=== PATIENT | female | born 1995 | race Caucasian/White ===

== ENCOUNTER 2017-06-12 23:46 | Observation (INO) ==
--- NOTE | 2017-06-13 08:44 | OB/GYN Progress Note ---
Date of Encounter: 06/13/17 Time of Encounter: 01:30 - Assessment and Plan (1) 24 weeks gestation of Status: Acute (2) Decreased movement affecting management of mother, antepartum Status: Acute FHT reassuring. Discharge home with precautions. Qualifiers: Fetus number: single or unspecified fetus Qualified Code(s): O36.8190 - Decreased movements, unspecified trimester, not applicable or unspecified Subjective - Subjective Interval history: 21 year-old presenting at 24w4d with c/o decreased movement. No other complaints. Antepartum ROS: no loss of fluid, no vaginal bleeding, no movement normal , no contractions Objective - Vital Signs Vital Signs: Intake and Output 06/12/17 06/13/17 06/13/17 23:59 07:59 15:59 Other: Weight 128.6 kg - Exam FHR: category 1 FHR comments: FHT reassuring for GA Abdomen: Present: soft, gravid Uterus: Present: normal
== END 2017-06-13 01:37 | disposition home or self-care (01) ==
LOC: 1NENULAB
PROVIDERS: ADMIT Registered Nurse; ATTEND Registered Nurse

== ENCOUNTER 2017-07-09 21:33 | Observation (INO) ==
[2017-07-09 22:13] LABS: Bilirubin,Urine Negative (Negative); Blood,Urine Negative (Negative); Clarity,Urine Cloudy (Clear); Color,Urine Yellow (Yellow); Glucose,Urine (UA) Normal (Normal); Ketones,Urine 80 mg/dL (Negative); Leukocyte Esterase,Urine Moderate (Negative); Nitrite,Urine Negative (Negative); PH,Urine 6.5 pH Units (5.0-8.0); Protein,Urine Trace mg/dL (Neg-Trace); Specific Gravity,Urine 1.026 (1.010-1.025); Urobilinogen,Urine Normal (Normal)
[2017-07-09 22:14] LABS: Bacteria,Urine Moderate per hpf (None-Few); Hyaline Casts,Urine None Seen per lpf (None-Few); Squamous Epithelial Cell,Urine Many per lpf (None-Few); WBC,Urine 15-30 per hpf (0-3)
[2017-07-09 22:21] LABS: Amphetamine Screen,Urine Negative ng/mL (Cutoff=1000); Barbiturate Screen,Urine Negative ng/mL (Cutoff=200); Benzodiazepines Screen,Urine Negative ng/mL (Cutoff=200); Cannabinoid Screen,Urine Negative ng/mL (Cutoff = 50); Cocaine Screen,Urine Negative ng/mL (Cutoff= 300); Opiate Screen,Urine Negative ng/mL (Cutoff=300); Phencyclidine Screen,Urine Negative ng/mL (Cutoff=25)
--- NOTE | 2017-07-09 22:21 | OB/GYN Progress Note ---
Date of Encounter: 07/09/17 Time of Encounter: 19:30 - Assessment and Plan (1) 28 weeks gestation of Current Visit: Yes Status: Acute (2) Pain of round ligament affecting , antepartum Current Visit: Yes Status: Acute FHT reassuring UA negative for UTI LLQ pain likely from round ligament pain Patient is advised to limit sudden movements that are precipitating her pain Plan to discharge patient with antepartum precautions and follow-up outpatient (3) Nausea Current Visit: Yes Status: Acute discharge home with zofran for nausea (4) Tobacco use during in third trimester Current Visit: Yes Status: Acute Subjective - Subjective Principal diagnosis: Left lower quadrant pain Interval history: 21F at 28 weeks and 2 days presents to labor and delivery for persistent left lower quadrant pain starting at 0230 this morning. Patient receives care from midwives. The abdominal pain does not radiate. Pain level ranges from 2-10/10. Worse with sudden movements, better with walking. Patient has been voiding without difficulty. Admits to normal bowel movement in the morning without relief of pain. Denied any fever, chills, vomiting, but does admit to nausea. She is able to tolerate PO intake. Has not taken any medications for the pain. She reports good movements, denies contractions, vaginal bleeding, fluid leakage. complicated by obesity, active chronic smoker, A negative blood type. Blood type: A negative, negative antibody Varicella IgG: positive Rubella IgG: positive T. Pallidum: negative Hep B: NR HIV: NR Antepartum ROS: movement normal, no loss of fluid, no vaginal bleeding, no contractions Objective - Vital Signs Vital Signs: Intake and Output 07/09/17 07/09/17 07/09/17 07:59 15:59 23:59 Other: Weight 127.1 kg Patient Weight 07/09/17 23:59 Weight 127.1 kg - Exam FHR: auscultation normal, category 1 Auscultation: bilateral: normal Abdomen: Present: normal appearance, soft, gravid Uterus: Present: normal, firm
== END 2017-07-09 22:40 | disposition home or self-care (01) ==
LOC: 1NENULAB
PROVIDERS: ADMIT Registered Nurse; ATTEND Registered Nurse

== ENCOUNTER → 2017-09-21 23:51 | Observation (INO) ==
[2017-09-21 23:16] LABS: Bilirubin,Urine Negative (Negative); Blood,Urine Negative (Negative); Clarity,Urine Slightly Cloudy (Clear); Color,Urine Yellow (Yellow); Glucose,Urine (UA) Normal (Normal); Ketones,Urine Negative (Negative); Leukocyte Esterase,Urine Negative (Negative); Nitrite,Urine Negative (Negative); PH,Urine 5.5 pH Units (5.0-8.0); Protein,Urine 30 mg/dL (Neg-Trace); Specific Gravity,Urine >= 1.030 (1.010-1.025); Urobilinogen,Urine Normal (Normal)
[2017-09-21 23:29] LABS: Amphetamine Screen,Urine Negative ng/mL (Cutoff=1000); Barbiturate Screen,Urine Negative ng/mL (Cutoff=200); Benzodiazepines Screen,Urine Negative ng/mL (Cutoff=200); Cannabinoid Screen,Urine Negative ng/mL (Cutoff = 50); Cocaine Screen,Urine Negative ng/mL (Cutoff= 300); Opiate Screen,Urine Negative ng/mL (Cutoff=300); Phencyclidine Screen,Urine Negative ng/mL (Cutoff=25)
[2017-09-21 23:35] LABS: Bacteria,Urine Many per hpf (None-Few); Hyaline Casts,Urine None Seen per lpf (None-Few); RBC,Urine 0-3 per hpf (0-3); Squamous Epithelial Cell,Urine Many per lpf (None-Few); WBC,Urine 0-3 per hpf (0-3)
--- NOTE | 2017-09-22 05:15 | OB/GYN Progress Note ---
Date of Encounter: 09/22/17 Time of Encounter: 23:40 - Assessment and Plan (1) 39 weeks gestation of Status: Acute (2) LGA (large for gestational age) fetus Status: Acute Pt scheduled for delivery (3) Cramping affecting , antepartum Status: Acute SVE unchanged per RN. Discharge home with precautions. Subjective - Subjective Interval history: Pt presenting for labor evaluation. She was seen and evaluated by medical staff specialist. Antepartum ROS: contractions Objective - Vital Signs Vital Signs: Intake and Output 09/21/17 09/21/17 09/22/17 15:59 23:59 07:59 Other: Weight 157.5 kg - Exam FHR: category 1 FHR comments: NST reactive Cervical dilation: 1-2/70/-2 per RN - Labs Labs: Abnormal lab results Urine Clarity Slightly Cloudy (Clear) A 09/21/17 23:05 Ur Specific [place] >= 1.030 (1.010-1.025) H 09/21/17 23:05 Urine Protein 30 mg/dL (Neg-Trace) H 09/21/17 23:05 Ur Squamous Epith Cells Many per lpf (None-Few) H 09/21/17 23:05 Urine Bacteria Many per hpf (None-Few) H 09/21/17 23:05
== END | disposition home or self-care (01) ==
LOC: 1NENULAB
PROVIDERS: ADMIT Registered Nurse; ATTEND Registered Nurse

== ENCOUNTER 2017-09-24 13:14 | Inpatient (IN) ==
[2017-09-24] MEDS ORDERED: Oxytocin 20 units/ LR 1000 mL 20 UNIT/1,000 ML BAG IVC ONE (13:30)
[2017-09-24] MEDS ORDERED: CeFAZolin Syr 3,000MG/30 ML 3,000 MG/30 ML SYRINGE IVPB ONE (13:30)
[2017-09-24] MEDS ORDERED: Ringers Solution, Lactated 1,000 ML IVC SCH ×2 (13:30→18:15)
[2017-09-24] MEDS ORDERED: Metoclopramide 10 MG/2 ML VIAL IVP ONE (13:30)
[2017-09-24] MEDS ORDERED: Ringers Solution, Lactated 1,000 ML IVC ONE (13:30)
[2017-09-24] MEDS ORDERED: Famotidine 20 MG/2 ML VIAL IVP ONE (13:30)
--- NOTE | 2017-09-24 14:10 | Anesthesia Evaluation PreOp ---
Date of Encounter: 09/24/17 Time of Encounter: 14:08 - Past History Planned Operation: csection with spinal Cardiac History: Denies any Significant Hx Pulmonary History: Smoker, Pack/yr (1-2pk/yr) PROVIDER RELATIONS CONSULTANT History: Other (migraines, numb area left thigh since age 13) Other Medical History: Denies Any Significant HX, Other (morbid obesity BMI 57.2 , anxiety, depression, hx of suicidal ideation, bipolar disorder) Anesthesia History: No Prior Anesthetic Complications, Past Anesthesia (wisdom teeth extraction) : Yes Alcohol Use: none Drug use: none Medications and Allergies Formula Tablet 1 tab PO DAILY 01/17/17 [History] Ferrous Sulfate 325 mg PO DAILY 07/09/17 [History] Clindamycin HCl 300 mg PO QID #28 capsule 09/11/17 [Rx] 3 Allergy/AdvReac Type Severity Reaction Status Date / Time [place] AdvReac Nausea Verified 09/11/17 01:58 chili powder Allergy unsure was Uncoded 06/11/17 18:00 as and hospitalized - Meds/Allergy Pre-op Review Medications Reviewed: Yes Allergies Reviewed: Yes Beta Blockers on Current Med List: No Anesthesia Exam BP 128/76 T 98.7 P 57 Height: 5'1" Weight: 137.2kg NPO (# of Hours): 14 Pain Scale: 0 Pain Scale Used: Numeric (1 - 10) - HEENT Pupil (Motor): Pupils equal Mallampati: II Teeth: Normal Oral Opening: Greater than 3 - PROVIDER RELATIONS CONSULTANT LOC: Oriented PROVIDER RELATIONS CONSULTANT Motor: Normal RUE, Normal LUE, Normal RLE, Normal LLE, Normal Face PROVIDER RELATIONS CONSULTANT Sensory: Normal: RUE, LUE, RLE, LLE, Face - Cardiac Rhythm: Regular Murmur: None JVD: No Carotid Bruit: No - Pulmonary Breath Sounds: bilateral Clear Respiratory Effort: Symmetrical Anesthesia Assess/Plan ASA Score: 3 Modified [place] Scale for Level of Consciousness: Cooperative, oriented, and tranquil Anesthetic Plan: Regional Autologous Blood: No Monitoring Plan: Standard Monitors Recovery Plan: PACU
--- NOTE | 2017-09-24 14:10 | OB/GYN History & Physical ---
Date of Encounter: 09/24/17 Time of Encounter: 14:08 Assessment and Plan (1) Macrosomia Current visit: Yes Status: Acute (2) 39 weeks gestation of Current visit: No Status: Acute Pt presents for primary b/c u/s shows very large . She is worried about increased risk of dystocia, she is aware of surgical risks and desires to proceed with primary .. History of Present Illness Chief complaint: Here for primary for macrosomia HPI: Ms. Clifford is a 22 year old female female at 39 weeks gestation presents for primary for suspected macrosomia by recent u/s showing EFWT > 95%. has been otherwise uncomplicated. On arrival she reports + GFM, no vb or lof. Past Med Surg Social Fam HX - Past Medical History Source: patient, old records reviewed Medical history: no medical history Psychiatric history: bipolar, depression, PTSD, prior suicide attempt, previous psychiatric hospitalization - Past Surgical History Surgical History: other Additional surgical history: wisdom teeth - Social History Smoking Status: Current every day smoker Smokeless Tobacco Status: No Alcohol use: none Drug use: none - Family History Father Adopted: No Family Member Ethnicity: Non- Living Status: Still Living Hx Family Cardiac Disorders: No Hx Family Respiratory Disorders: No Hx Family Cancer: No Hx Family GI Disorders: No Hx Family Endocrine Disorder: Yes (type 2 diabetes) Hx Family Neuromuscular Disorders: No Hx Family Neurologic Disorders: No Hx Family HEENT Disorders: No Hx Family Autoimmune Disorders: No Obstetrical History - Pregnancies : 1 Medications and Allergies Formula Tablet 1 tab PO DAILY 01/17/17 [History] Ferrous Sulfate 325 mg PO DAILY 07/09/17 [History] Clindamycin HCl 300 mg PO QID #28 capsule 09/11/17 [Rx] 3 Allergy/AdvReac Type Severity Reaction Status Date / Time [place] AdvReac Nausea Verified 09/11/17 01:58 chili powder Allergy unsure was Uncoded 06/11/17 18:00 as infant and hospitalized Exam - Constitutional Constitutional: well developed, well nourished, no acute distress - HEENT HEENT: EOMI, PERRL - Neck Neck exam: full ROM - Lungs Respiratory exam: CTAB - Cardiovascular Cardiovascular exam: RRR - Abdomen Abdomen: Present: bowel sounds normal, gravid, non tender - Extremities Extremities exam: full ROM Deep Tendon Reflex Grade: 2+ Normal Results All other labs normal. - VTE Reasons for not Prescribing Prophylaxis: Treatment not Indicated - Low risk for VTE
[2017-09-24 14:27] LABS: Basophils % 0.3 %; Eosinophils # 0.4 K/mcL (0.0-0.6); Eosinophils % 2.8 %; Hematocrit 33.2 % (35.3-44.9); Hemoglobin 10.2 g/dL (11.5-15.4); Immature Granulocytes % 0.8 % (0-4); Mean Corpuscular HGB Conc 30.7 g/dL (31.6-35.5); Mean Corpuscular Hemoglobin 22.5 pg (28.0-33.3); Mean Corpuscular Volume 73.3 fL (83.0-100.0); Mean Platelet Volume 11.7 fL (9.4-12.4); Monocytes # 0.6 K/mcL (0.0-1.3); Monocytes % 4.8 %; Platelet Count 207 K/mcL (140-400); Red Blood Count 4.53 M/mcL (3.82-4.97); Red Cell Distribution Width 16.4 % (11.5-14.5); Segmented Neutrophils % 76.3 %
[2017-09-24 14:33] LABS: Amphetamine Screen,Urine Negative ng/mL (Cutoff=1000); Barbiturate Screen,Urine Negative ng/mL (Cutoff=200); Benzodiazepines Screen,Urine Negative ng/mL (Cutoff=200); Cannabinoid Screen,Urine Negative ng/mL (Cutoff = 50); Cocaine Screen,Urine Negative ng/mL (Cutoff= 300); Opiate Screen,Urine Negative ng/mL (Cutoff=300); Phencyclidine Screen,Urine Negative ng/mL (Cutoff=25)
[2017-09-24] MEDS ORDERED: Bupivacaine/PF 0.75% in Dex 2 ML AMPUL INFILT ONE (16:48)
[2017-09-24] MEDS ORDERED: Lidocaine -MPF 1% 5 ML AMPUL ONE (16:58)
[2017-09-24] MEDS ORDERED: Morphine Sulfate/PF 5mg/10mL Vial ONE (17:03)
[2017-09-24] MEDS ORDERED: *HR* Phenylephrine 10 MG/ML VIAL ONE (17:19)
[2017-09-24] MEDS ORDERED: Ringers Solution, Lactated 1,000 ML ONE (17:22)
[2017-09-24] MEDS ORDERED: Ondansetron 4 MG/2 ML VIAL ONE (17:23)
[2017-09-24] MEDS ORDERED: *HR* Oxytocin 10 UNIT/ML VIAL IM ONE (17:23)
[2017-09-24] MEDS ORDERED: Dexamethasone 4 MG/ML VIAL ONE (17:23)
--- NOTE | 2017-09-24 17:58 | Anesthesia Procedures ---
Date of Encounter: 09/24/17 Time of Encounter: 17:10 Procedures: Anesthesia - Epidural/Spinal Patient ID/Chart reviewed: Yes Patient examined: Yes OB Eval: : 1 OB Eval: Hx Para: 0 Site Prep: Aseptic Technique, Sterile prep and drape, Povidone-Iodine 1% Patient position: upright Local Anesthetic: Lidocaine 1% Amount of Local Anesthetic used: 3 Interspace Used: L3-L4 Loss of Resistance (OSCAR): No Blood: No CSF: Yes Paresthesia: No Spinal Needle Gauge: 25 Spinal Dose: Bupivicaine 0.75% 1.6ml morphine 300mcg Procedure: Spinal in upright position. Intrathecal dose administed 1s pass without any immediate noted complications. VSS throughout. Vitals + FHT's: See anesthesia record
[2017-09-24] MEDS ORDERED: *HR* HYDROmorphone (PF) 1 MG/ML SYRINGE IVP PRN (18:03)
[2017-09-24] MEDS ORDERED: Ondansetron 4 MG/2 ML VIAL IVP ONE (18:03)
[2017-09-24] MEDS ORDERED: Acetaminophen IV 1,000 MG/100 ML INFUS..BTL IVPB ONE (18:03)
[2017-09-24] MEDS ORDERED: *HR* Promethazine 25 MG/ML VIAL IVP PRN (18:03)
[2017-09-24] MEDS ORDERED: Naloxone 0.4 MG/ML INJ IVP PRN (18:03)
[2017-09-24] MEDS ORDERED: *HR* Meperidine 25 MG/ML SYRINGE IVP PRN (18:03)
--- NOTE | 2017-09-24 18:49 | OB/GYN Procedure Note ---
Section - Date of procedure: 09/24/17 Preop diagnosis: other (Primary section for suspected macrosomia) Post-op diagnosis: same Procedure: section, primary low transverse Surgeon: Дмитрий Santillan Blood Loss: 500 Was there an assistant warehouse manager present: No Head Of English: Marino Latif Anesthesia Type: Spinal section complications: none Disposition: L&D Recovery Room Specimens: Placenta - Infant (s) Infant A Delivery Date: 09/24/17 Infant Delivery Time: 17:39 Presentation: vertex Position: unknown Gender: Male Gram Weight: 4015 kg at 1 minute: 8 at 5 minutes: 9 Shoulder Dystocia: not encountered Specimens collected: cord blood Placenta: spontaneous Cord: 3 umbilical vessels - Narrative Narrative: Patient's patient's 21-year-old primigravida female at 39 weeks gestation recent ultrasound for size greater than dates showing greater than 90th percentile gestational age infant with very large shoulders. After discussed with patient options patient did second primary section for suspected macrosomia and concern over possible dystocia. She is aware operative risks and signed appropriate consent. Description procedure: Patient was taken operating room where spinal anesthesia was administered. She is prepped draped in usual sterile fashion. Bladder was drained of clear urine with Hand catheter. Scalpel was used to make pain still skin incision which sharp taken down the rectus fascia. Fascia was incised midline fascial incision was extended bilaterally. Plane was developed and rectus muscle rectus fascia superiorly and distally rectus muscles divided midline peritoneum was entered bluntly. Bladder blade was placed and bladder flap was developed. Scalp was used to make a low transverse uterine incision. Membranes were ruptured clear fluid and infant was delivered from vertex presentation. Oropharynx is pharynx were suctioned of clear fluid. Cord was clamped cut and infant was handed nurse personnel who were in attendance. He was found to be 4015 g with Apgars of 8 at 1 minute and 9 at 5 minutes. With spontaneous delivery of normal placenta with three-vessel cord. Uterine cavity was massaged free of all residual tissue. Uterus was closed 0 Vicryl running lock stitches second imbricating layer was placed over the first with 0 Vicryl suture. Irrigation was performed hemostasis was ensured. Fascia was closed 0 Vicryl running manner. After post fascia again irrigation was performed hemostasis was ensured. Deep subcutaneous tissue was closed oh plain catgut suture with interrupted sutures. Skin edges reapproximated with 4-0 Vicryl. Suresh dressing was applied all sponge counts counts are correct patient taken recovery in good condition.
[2017-09-24] MEDS ORDERED: Ondansetron 4 MG/2 ML VIAL IVP PRN (21:35)
[2017-09-24] MEDS ORDERED: Metoclopramide 10 MG/2 ML VIAL IVP PRN (21:35)
[2017-09-24] MEDS ORDERED: Rho Immune Globulin 1,500 UNIT SYRINGE IM ONE (21:35)
[2017-09-24] MEDS ORDERED: Simethicone 80 MG TAB.CHEW PO PRN (21:35)
[2017-09-24] MEDS ORDERED: Oxytocin 20 units/ LR 1000 mL 20 UNIT/1,000 ML BAG IVC SCH (21:35)
[2017-09-24] MEDS ORDERED: Sennosides 8.6 MG TABLET PO PRN (21:35)
[2017-09-24] MEDS: *HR* OxyCODONE/APAP 5/325 TABLET PO PRN (22:57)
--- NOTE | 2017-09-24 23:36 | Anesthesia Evaluation Post Op ---
Date of Encounter: 09/24/17 Time of Encounter: 19:30 - Vital Signs Vital Signs: Vital Signs Temperature 98.4 F 09/24/17 20:15 Pulse Rate 80 09/24/17 20:15 Respiratory Rate 14 09/24/17 20:15 Blood Pressure 106/71 09/24/17 20:15 O2 Sat by Pulse Oximetry 93 09/24/17 20:15 Temperature 98.6 F 09/24/17 22:25 Pulse Rate 78 09/24/17 22:25 Respiratory Rate 16 09/24/17 22:25 Blood Pressure 105/66 09/24/17 22:25 O2 Sat by Pulse Oximetry 96 09/24/17 22:25 - Lungs Lungs: Clear Ascult./Percussion - Airway Airway: Non-obstructed - Cardiovascular Regular Rate - Mental Status Mental Status: Alert & Oriented, Answers Appropriately - Pain Pain Scale: 3 Pain Scale used: Numeric (1 - 10) - Nausea Vomiting Nausea Vomiting: Not Present - Hydration Hydration: NPO, Hand catheter - Discharge PostOp Status: Transfer Patient to floor
[2017-09-25] MEDS: Ibuprofen 600 MG TABLET PO PRN ×2 (01:46→17:42)
[2017-09-25] MEDS: *HR* OxyCODONE/APAP 5/325 TABLET PO PRN ×4 (04:36→21:59)
[2017-09-25 04:44] LABS: Basophils % 0.2 %; Eosinophils % 0.1 %; Hematocrit 29.3 % (35.3-44.9); Immature Granulocytes % 0.8 % (0-4); Lymphocytes % 12.1 %; Mean Corpuscular HGB Conc 30.7 g/dL (31.6-35.5); Mean Corpuscular Hemoglobin 22.7 pg (28.0-33.3); Mean Corpuscular Volume 73.8 fL (83.0-100.0); Monocytes # 0.8 K/mcL (0.0-1.3); Monocytes % 4.9 %; Neutrophils # 13.6 K/mcL (1.6-8.9); Platelet Count 198 K/mcL (140-400); Red Blood Count 3.97 M/mcL (3.82-4.97); Segmented Neutrophils % 81.9 %
--- NOTE | 2017-09-25 10:31 | OB/GYN Progress Note ---
Date of Encounter: 09/25/17 Time of Encounter: 10:26 - Assessment and Plan (1) delivery delivered Current Visit: Yes Status: Acute S/P PLTCS day #1 Continue routine PP care consult prn Consider discharge tomorrow Subjective - Subjective Interval history: Doing well, ambulating without difficulty. Tolerating regular diet. Hand removed at 0530, patient has not voided. Passing gas, no BM. Pain well controlled with po meds. Dressing dry and intact. Lochia light and without clots. in room, states breast feeding well "but he falls asleep." Patient reports: appetite normal, pain well controlled, ambulating normally Clint: doing well, nursing well Objective - Vital Signs Latest vital signs: Vital Signs Temp Pulse Resp BP Pulse Ox 09/25/17 08:40 99.3 F 84 14 102/52 96 09/25/17 05:10 98.8 F 82 16 106/68 96 09/25/17 00:11 98.6 F 77 16 109/68 97 09/24/17 23:15 98.2 F 82 18 102/59 95 09/24/17 22:25 98.6 F 78 16 105/66 96 09/24/17 21:45 98.5 F 83 16 106/68 95 09/24/17 20:15 98.4 F 80 14 106/71 93 Intake and Output 09/24/17 09/25/17 09/25/17 23:59 07:59 15:59 Output Total 800 / 800 Balance -800 / -800 Output: Catheter 800 / 800 Other: Weight 61.87 kg 134.173 kg Patient Weight 09/25/17 23:59 Weight 134.173 kg - Exam Lungs: bilateral: normal Chest: Normal S1, Normal S2 Extremities: Present: normal Abdomen: Present: normal appearance Incision: Present: dressed Uterus: Present: firm Comments: Midline, at umbilcus - Labs Labs: Laboratory Results - last 24 hr 09/24/17 09/24/17 09/24/17 13:48 13:48 13:48 WBC 13.0 H RBC 4.53 Hgb 10.2 L Hct 33.2 L MCV 73.3 L MCH 22.5 L MCHC 30.7 L RDW 16.4 H Plt Count 207 MPV 11.7 Immature Gran % 0.8 Seg Neutrophils % 76.3 Lymphocytes % 15.0 Monocytes % 4.8 Eosinophils % 2.8 Basophils % 0.3 Neutrophils # 10.0 H Lymphocytes # 2.0 Monocytes # 0.6 Eosinophils # 0.4 Basophils # 0.0 Urine Opiates Screen Negative Ur Barbiturates Screen Negative Ur Phencyclidine Scrn Negative Ur Amphetamines Screen Negative U Benzodiazepines Scrn Negative Urine Cocaine Screen Negative U Marijuana (THC) Screen Negative Blood Type A NEGATIVE Antibody Screen NEGATIVE 09/25/17 04:13 WBC 16.6 H RBC 3.97 Hgb 9.0 L Hct 29.3 L MCV 73.8 L MCH 22.7 L MCHC 30.7 L RDW 16.0 H Plt Count 198 MPV 12.0 Immature Gran % 0.8 Seg Neutrophils % 81.9 Lymphocytes % 12.1 Monocytes % 4.9 Eosinophils % 0.1 Basophils % 0.2 Neutrophils # 13.6 H Lymphocytes # 2.0 Monocytes # 0.8 Eosinophils # 0.0 Basophils # 0.0 Urine Opiates Screen Ur Barbiturates Screen Ur Phencyclidine Scrn Ur Amphetamines Screen U Benzodiazepines Scrn Urine Cocaine Screen U Marijuana (THC) Screen Blood Type Antibody Screen
[2017-09-25] MEDS: Prenatal Vit/FA 1 EACH TABLET PO SCH (17:13)
[2017-09-26] MEDS: *HR* OxyCODONE/APAP 5/325 TABLET PO PRN ×2 (02:27→09:31)
[2017-09-26] MEDS: Ibuprofen 600 MG TABLET PO PRN (05:36)
[2017-09-26 08:22] VITALS: BP 100/67
--- NOTE | 2017-09-26 09:24 | OB/GYN Progress Note ---
Date of Encounter: 09/26/17 Time of Encounter: 09:21 - Assessment and Plan (1) Mother currently breast-feeding Current Visit: Yes Status: Acute consult today. (2) delivery delivered Current Visit: Yes Status: Acute Pt meeting all post-op milestones. Pain well controlled with PO medications. She declines discharge home at this time. Will reassess readiness for discharge this afternoon. contraceptive options discusses and pt will research IUD's prior to post-op visit. She reports good mood. No complaints at this time. Subjective - Subjective Patient reports: appetite normal, voiding normally, pain well controlled, ambulating normally : doing well, other (having latch issues) Objective - Vital Signs Latest vital signs: Vital Signs Temp Pulse Resp BP Pulse Ox 09/26/17 07:50 98.1 F 83 12 100/67 96 09/25/17 20:56 98.8 F 83 16 96/61 97 09/25/17 16:25 98 F 101 20 111/76 09/25/17 15:40 16 09/25/17 12:39 97.9 F 107 14 113/74 98 Intake and Output 09/25/17 09/26/17 09/26/17 23:59 07:59 15:59 Intake Total 1000 / 1000 Output Total 700 / 700 Balance 300 / 300 Intake: Oral 600 / 600 Free Water 400 / 400 Output: Urine 700 / 700 Other: Meal Dinner Breakfast Percent of Meal Consumed 100% 90% Weight 134.535 kg Patient Weight 09/26/17 23:59 Weight 134.535 kg - Exam Lungs: bilateral: normal Chest: Normal S1, Normal S2 Extremities: Present: edema (1+ bilaterally) Abdomen: Present: soft Incision: Present: dressed (MARION dressing dry and intact) Uterus: Present: firm - Labs Labs: Laboratory Results - last 24 hr 09/24/17 18:30 Baby's Blood Type A RH NEGATIVE Mother's Blood Type A RH NEGATIVE Rhogam Indicated NO
[2017-09-26] MEDS: Prenatal Vit/FA 1 EACH TABLET PO SCH (09:32)
--- NOTE | 2017-09-26 11:28 | Discharge Summary ---
Date of Encounter: 09/26/17 Time of Encounter: 11:23 - Discharge Diagnosis (1) Mother currently breast-feeding Priority: Secondary Status: Acute Comments: consult this am. (2) delivery delivered Priority: Primary Status: Acute Comments: Pt meeting all post-op milestones and now desires discharge home today. - Discharge Medications Prescriptions: OxyCODONE/APAP 5/325 [Percocet 5/325 MG] 1 each PO Q4HR PRN 5 Days #30 tablet PRN Reason: Moderate pain 4-6 Ibuprofen [Motrin] 600 mg PO Q6HR PRN #60 tablet PRN Reason: Cramping Breast Pump [BREAST PUMP] 1 each .ROUTE AD #1 each Docusate [Colace] 100 mg PO BID #60 capsule Ferrous Sulfate 325 mg PO DAILY #30 tablet Home Medications: Formula Tablet 1 tab PO DAILY 01/17/17 [History] Ferrous Sulfate 325 mg PO DAILY 07/09/17 [History] Breast Pump [BREAST PUMP] 1 each .ROUTE AD #1 each 09/26/17 [Rx] Docusate [Colace] 100 mg PO BID #60 capsule 09/26/17 [Rx] Ferrous Sulfate 325 mg PO DAILY #30 tablet 09/26/17 [Rx] Ibuprofen [Motrin] 600 mg PO Q6HR PRN #60 tablet 09/26/17 [Rx] OxyCODONE/APAP 5/325 [Percocet 5/325 MG] 1 each PO Q4HR PRN 5 Days #30 tablet [Rx] Vit/FA 1 each PO DAILY tablet 09/26/17 [Rx] Simethicone [Gas-X] 80 mg PO TID PRN tab.chew 09/26/17 [Rx] Allergies/Adverse Reactions: 3 Allergy/AdvReac Type Severity Reaction Status Date / Time [place] AdvReac Nausea Verified 09/11/17 01:58 chili powder Allergy unsure was Uncoded 06/11/17 18:00 as and hospitalized Data Procedures and tests throughout hospitalization: Laboratory Tests 09/24/17 09/24/17 09/24/17 13:48 13:48 13:48 WBC 13.0 H RBC 4.53 Hgb 10.2 L Hct 33.2 L MCV 73.3 L MCH 22.5 L MCHC 30.7 L RDW 16.4 H Plt Count 207 MPV 11.7 Immature Gran % 0.8 Seg Neutrophils % 76.3 Lymphocytes % 15.0 Monocytes % 4.8 Eosinophils % 2.8 Basophils % 0.3 Neutrophils # 10.0 H Lymphocytes # 2.0 Monocytes # 0.6 Eosinophils # 0.4 Basophils # 0.0 Urine Opiates Screen Negative Ur Barbiturates Screen Negative Ur Phencyclidine Scrn Negative Ur Amphetamines Screen Negative U Benzodiazepines Scrn Negative Urine Cocaine Screen Negative U Marijuana (THC) Screen Negative Blood Type A NEGATIVE Antibody Screen NEGATIVE Baby's Blood Type Mother's Blood Type Rhogam Indicated 09/24/17 09/25/17 18:30 04:13 WBC 16.6 H RBC 3.97 Hgb 9.0 L Hct 29.3 L MCV 73.8 L MCH 22.7 L MCHC 30.7 L RDW 16.0 H Plt Count 198 MPV 12.0 Immature Gran % 0.8 Seg Neutrophils % 81.9 Lymphocytes % 12.1 Monocytes % 4.9 Eosinophils % 0.1 Basophils % 0.2 Neutrophils # 13.6 H Lymphocytes # 2.0 Monocytes # 0.8 Eosinophils # 0.0 Basophils # 0.0 Urine Opiates Screen Ur Barbiturates Screen Ur Phencyclidine Scrn Ur Amphetamines Screen U Benzodiazepines Scrn Urine Cocaine Screen U Marijuana (THC) Screen Blood Type Antibody Screen Baby's Blood Type A RH NEGATIVE Mother's Blood Type A RH NEGATIVE Rhogam Indicated NO Labs on day of discharge: Labs from last 24 hours 09/24/17 18:30 Baby's Blood Type A RH NEGATIVE Mother's Blood Type A RH NEGATIVE Rhogam Indicated NO Date of admission: 09/24/17 13:14 Primary care physician: PCP NONE Consults: 09/25/17 08:58 Consult to Thermoscrew Operator (W&C) [CONS] Stat Reason For Exam: Reason for SW Consult: History of suicide attempt, depression, bipolar disorder, and previous psychiatric hospitalization. Discharging clinician: Madeline Campbell Anticipated date of discharge: 09/26/17 - Patient Status Disposition: Home, Self-Care Condition: Good Functional capacity at discharge: independent ambulation Overall status at discharge: patient is progressing back to baseline - Discharge Instructions Follow Up With: NONE,PCP [Primary Care Provider] - Дмитрий Irby MD [Partnered Physician] - - Diet and Activity Activity: increase activity as tolerated Hospital Course Reason for admission: section ( macrosomia) Delivery: section Other procedures: none Discharge diagnosis: IUP at term delivered baby: male Hospital course: - Date of procedure: 09/24/17 Preop diagnosis: other (Primary section for suspected macrosomia) Post-op diagnosis: same Procedure: section, primary low transverse Surgeon: Дмитрий Santillan Blood Loss: 500 Was there an middle school assistant principal present: [place] Medical Records Director: Marino Latif Anesthesia Type: Spinal section complications: none Disposition: L&D Recovery Room Specimens: Placenta - Infant (s) A Infant Delivery Date: 09/24/17 Delivery Time: 17:39 Presentation: vertex Position: unknown Gender: Male Gram Weight: 4015 kg at 1 minute: 8 at 5 minutes: 9 Shoulder Dystocia: not encountered Specimens collected: cord blood Placenta: spontaneous Cord: 3 umbilical vessels Time Attestation: Total time spent providing and/or coordinating discharge services: Time Spent: Less than 30 minutes - VTE Reasons for not Prescribing Prophylaxis: Treatment not Indicated - Low risk for VTE Documentation of Mechanical Device: Intermittent pneumatic compression device Exam - Constitutional Vitals: Temp Pulse Resp BP Pulse Ox 98.1 F 83 16 100/67 96 09/26/17 07:50 09/26/17 07:50 09/26/17 10:51 09/26/17 07:50 09/26/17 07:50 Exam: see exam from this am
== END 2017-09-26 12:35 | disposition home or self-care (01) | DRG 540 ==
LOC: 1NENULAB 13:14 → 1NENUOBS 22:36
PROVIDERS: ADMIT Obstetrics & Gynecology; ATTEND Obstetrics & Gynecology

== ENCOUNTER → 2019-05-16 12:00 | Observation (INO) ==
[2019-05-15] MEDS: Acetaminophen 325 MG TABLET PO PRN (23:56)
[2019-05-16] MEDS: Acetaminophen 325 MG TABLET PO PRN (07:43)
[~2019-05-16 12:00] MED LIST: Mag Hydrox/Al Hydrox/Simeth 30 ML UDC PO PRN
== END | disposition home or self-care (01) ==
LOC: 1NENULAB
PROVIDERS: ADMIT Advanced Practice Midwife; ATTEND Advanced Practice Midwife

== ENCOUNTER → 2019-06-10 19:09 | Observation (INO) | END | disposition home or self-care (01) | LOC: 1NENULAB | PROVIDERS: ADMIT Obstetrics & Gynecology; ATTEND Obstetrics & Gynecology ==

== ENCOUNTER → 2019-06-12 21:50 | Observation (INO) ==
[2019-06-12 20:56] LABS: Bilirubin,Urine Small (Negative); Blood,Urine Negative (Negative); Clarity,Urine Turbid (Clear); Color,Urine Dark Yellow (Yellow); Glucose,Urine (UA) Normal (Normal); Ketones,Urine Trace mg/dL (Negative); Leukocyte Esterase,Urine Moderate (Negative); Nitrite,Urine Negative (Negative); Protein,Urine 30 mg/dL (Neg-Trace); Urobilinogen,Urine Normal (Normal)
[2019-06-12 20:59] LABS: Bacteria,Urine Moderate per hpf (None-Few); Squamous Epithelial Cell,Urine Many per lpf (None-Few); WBC,Urine 15-30 per hpf (0-3)
[2019-06-12 21:00] LABS: Amphetamine Screen,Urine Negative ng/mL (Cutoff=1000); Barbiturate Screen,Urine Negative ng/mL (Cutoff=200); Benzodiazepines Screen,Urine Negative ng/mL (Cutoff=200); Cannabinoid Screen,Urine Negative ng/mL (Cutoff = 50); Cocaine Screen,Urine Negative ng/mL (Cutoff= 300); Opiate Screen,Urine Negative ng/mL (Cutoff=300); Phencyclidine Screen,Urine Negative ng/mL (Cutoff=25)
[2019-06-12 21:10] LABS: Amorphous Sediment,Urine Few per hpf (Few); Calcium Oxalate Crystals,Urine Present; Mucus,Urine Few per lpf (Few); RBC,Urine 0-3 per hpf (0-3)
== END | disposition home or self-care (01) ==
LOC: 1NENULAB
PROVIDERS: ADMIT Advanced Practice Midwife; ATTEND Advanced Practice Midwife

== ENCOUNTER 2019-07-02 10:00 | Inpatient (IN) ==
[2019-07-02] MEDS ORDERED: Famotidine 20 MG/2 ML VIAL IVP PRN (10:45)
[2019-07-02] MEDS ORDERED: Ringers Solution, Lactated 1,000 ML IVC SCH (10:45)
[2019-07-02] MEDS ORDERED: Metoclopramide 10 MG/2 ML VIAL IVP PRN (10:45)
[2019-07-02 11:35] LABS: Basophils % 0.3 %; Eosinophils # 0.4 K/mcL (0.0-0.6); Hematocrit 32.9 % (35.3-44.9); Immature Granulocytes % 0.7 % (0-4); Lymphocytes # 1.9 K/mcL (0.6-4.6); Lymphocytes % 15.6 %; Mean Corpuscular HGB Conc 30.4 g/dL (31.6-35.5); Mean Corpuscular Hemoglobin 22.6 pg (28.0-33.3); Mean Corpuscular Volume 74.4 fL (83.0-100.0); Mean Platelet Volume 11.1 fL (9.4-12.4); Monocytes # 0.7 K/mcL (0.0-1.3); Monocytes % 5.7 %; Platelet Count 214 K/mcL (140-400); Red Blood Count 4.42 M/mcL (3.82-4.97); Red Cell Distribution Width 16.9 % (11.5-14.5); Segmented Neutrophils % 74.7 %
[2019-07-02 11:45] LABS: Amphetamine Screen,Urine Negative ng/mL (Cutoff=1000); Barbiturate Screen,Urine Negative ng/mL (Cutoff=200); Benzodiazepines Screen,Urine Negative ng/mL (Cutoff=200); Cannabinoid Screen,Urine Negative ng/mL (Cutoff = 50); Cocaine Screen,Urine Negative ng/mL (Cutoff= 300); Opiate Screen,Urine Negative ng/mL (Cutoff=300); Phencyclidine Screen,Urine Negative ng/mL (Cutoff=25)
[2019-07-02] MEDS ORDERED: *HR* FentaNYL (PF) 100 MCG/2 ML VIAL ONE (11:46)
[2019-07-02] MEDS ORDERED: *HR* Morphine Sulfate/PF 10 MG/10 ML AMPUL ONE (11:46)
[2019-07-02] MEDS ORDERED: CeFAZolin Syr 3,000MG/30 ML 3,000 MG/30 ML SYRINGE IVPB ONE (12:12)
== END 2019-07-02 12:27 | disposition home or self-care (01) | DRG 566 ==
LOC: 1NENULAB 10:19
PROVIDERS: ADMIT Obstetrics & Gynecology; ATTEND Obstetrics & Gynecology

== ENCOUNTER 2019-07-08 09:36 | Inpatient (IN) ==
[2019-07-08] MEDS ORDERED: Metoclopramide 10 MG/2 ML VIAL IVP PRN (10:15)
[2019-07-08] MEDS ORDERED: Naloxone 0.4 MG/ML INJ IVP PRN (10:15)
[2019-07-08] MEDS ORDERED: Famotidine 20 MG/2 ML VIAL IVP PRN (10:15)
[2019-07-08 10:36] LABS: Basophils % 0.2 %; Eosinophils # 0.3 K/mcL (0.0-0.6); Eosinophils % 2.6 %; Hematocrit 33.4 % (35.3-44.9); Hemoglobin 10.1 g/dL (11.5-15.4); Immature Granulocytes % 0.9 % (0-4); Lymphocytes % 15.5 %; Mean Corpuscular HGB Conc 30.2 g/dL (31.6-35.5); Mean Corpuscular Hemoglobin 22.3 pg (28.0-33.3); Mean Corpuscular Volume 73.9 fL (83.0-100.0); Mean Platelet Volume 10.9 fL (9.4-12.4); Monocytes # 0.8 K/mcL (0.0-1.3); Monocytes % 6.2 %; Neutrophils # 9.6 K/mcL (1.6-8.9); Platelet Count 220 K/mcL (140-400); Red Blood Count 4.52 M/mcL (3.82-4.97); Red Cell Distribution Width 17.1 % (11.5-14.5); Segmented Neutrophils % 74.6 %; White Blood Count 12.8 K/mcL (4.3-11.1)
[2019-07-08 10:46] LABS: Amphetamine Screen,Urine Negative ng/mL (Cutoff=1000); Barbiturate Screen,Urine Negative ng/mL (Cutoff=200); Benzodiazepines Screen,Urine Negative ng/mL (Cutoff=200); Cannabinoid Screen,Urine Negative ng/mL (Cutoff = 50); Cocaine Screen,Urine Negative ng/mL (Cutoff= 300); Opiate Screen,Urine Negative ng/mL (Cutoff=300); Phencyclidine Screen,Urine Negative ng/mL (Cutoff=25)
[2019-07-08] MEDS: Ringers Solution, Lactated 1,000 ML IVC SCH ×3 (13:23→19:03)
[2019-07-08] MEDS ORDERED: Oxytocin 20 units/ LR 1000 mL 20 UNIT/1,000 ML BAG IVC SCH (17:15)
[2019-07-08] MEDS ORDERED: EPHEDrine 50 MG/ML VIAL IVP PRN (17:24)
[2019-07-08] MEDS ORDERED: *HR* FentaNYL (PF) 100 MCG/2 ML VIAL IVP PRN (17:44)
[2019-07-08] MEDS ORDERED: *HR* FentaNYL (PF) 100 MCG/2 ML VIAL ONE (17:47)
[2019-07-08] MEDS: Epidural Premix (fent/bupiv) 110 ML EP SCH (19:02)
[2019-07-08] MEDS: Ondansetron 4 MG/2 ML VIAL IVP PRN (19:07)
[2019-07-08] MEDS ORDERED: Ropivacaine/PF 0.2% 20 ML VIAL ONE (21:29)
[2019-07-09] MEDS: Ondansetron 4 MG/2 ML VIAL IVP PRN (02:43)
[2019-07-09] MEDS: Ringers Solution, Lactated 1,000 ML IVC SCH (02:44)
[2019-07-09] MEDS: Epidural Premix (fent/bupiv) 110 ML EP SCH (02:44)
[2019-07-09] MEDS ORDERED: 0.9 % Sodium Chloride 1,000 ML ONE (06:32)
[2019-07-09] MEDS ORDERED: *HR* FentaNYL (PF) 250 MCG/5 ML VIAL ONE (06:55)
[2019-07-09] MEDS ORDERED: *HR* Midazolam HCl 2 MG/2 ML VIAL ONE (06:55)
[2019-07-09] MEDS ORDERED: *HR* Ropivacaine/PF 0.5% 20 ML VIAL ONE (07:00)
[2019-07-09] MEDS ORDERED: Ondansetron 4 MG/2 ML VIAL ONE (07:02)
[2019-07-09] MEDS ORDERED: Dexamethasone 4 MG/ML VIAL ONE (07:02)
[2019-07-09] MEDS ORDERED: *HR* Succinylcholine 200 MG/10 ML VIAL IVP ONE (07:02)
[2019-07-09] MEDS ORDERED: *HR* Morphine Sulfate/PF 10 MG/10 ML AMPUL ONE (07:04)
[2019-07-09] MEDS ORDERED: *HR* FentaNYL (PF) 100 MCG/2 ML VIAL ONE (07:06)
[2019-07-09] MEDS ORDERED: Acetaminophen IV 1,000 MG/100 ML INFUS..BTL ONE (07:37)
[2019-07-09] MEDS ORDERED: *HR* HYDROMORPHONE 2 MG/ML VIAL ONE (07:38)
[2019-07-09] MEDS ORDERED: Rho Immune Globulin 1,500 UNIT SYRINGE IM ONE (07:54)
[2019-07-09] MEDS ORDERED: Ondansetron 4 MG/2 ML VIAL IVP PRN ×2 (07:55→10:15)
[2019-07-09] MEDS ORDERED: *HR* HYDROmorphone PF 0.5 MG/0.5 ML SYRINGE IVP PRN (07:55)
[2019-07-09] MEDS ORDERED: *HR* Promethazine 25 MG/ML VIAL IVP PRN (07:55)
[2019-07-09] MEDS ORDERED: Oxytocin 20 units/ LR 1000 mL 20 UNIT/1,000 ML BAG IVC SCH (10:15)
[2019-07-09] MEDS ORDERED: SODIUM CHLORIDE 0.9% IVPB ONE (10:15)
[2019-07-09] MEDS ORDERED: Sennosides 8.6 MG TABLET PO PRN (10:15)
[2019-07-09] MEDS ORDERED: Simethicone 80 MG TAB.CHEW PO PRN (10:15)
[2019-07-09] MEDS ORDERED: AZITHROMYCIN IVPB ONE (10:15)
[2019-07-09] MEDS ORDERED: Metoclopramide 10 MG/2 ML VIAL IVP PRN (10:15)
[2019-07-09] MEDS ORDERED: Prenatal Vit/FA 1 EACH TABLET PO SCH (10:15)
[2019-07-09] MEDS: Ibuprofen 600 MG TABLET PO PRN ×2 (12:20→18:02)
[2019-07-09] MEDS: metroNIDAZOLE 500 MG TABLET PO SCH ×2 (14:54→20:54)
[2019-07-09] MEDS: *HR* OxyCODONE/APAP 5/325 TABLET PO PRN ×2 (15:24→20:32)
[2019-07-09] MEDS: ceFAZolin 3,000 MG in 0.9 % Sodium Chloride 100 ML IVP SCH (15:24)
[2019-07-10] MEDS: Ibuprofen 600 MG TABLET PO PRN ×3 (00:27→12:49)
[2019-07-10] MEDS: *HR* OxyCODONE/APAP 5/325 TABLET PO PRN ×3 (00:35→09:58)
[2019-07-10] MEDS: ceFAZolin 3,000 MG in 0.9 % Sodium Chloride 100 ML IVP SCH ×2 (01:28→08:12)
[2019-07-10 05:09] LABS: Basophils % 0.2 %; Eosinophils # 0.1 K/mcL (0.0-0.6); Eosinophils % 0.5 %; Hematocrit 26.2 % (35.3-44.9); Immature Granulocytes % 0.6 % (0-4); Lymphocytes # 2.5 K/mcL (0.6-4.6); Lymphocytes % 19.9 %; Mean Corpuscular HGB Conc 29.8 g/dL (31.6-35.5); Mean Corpuscular Hemoglobin 22.9 pg (28.0-33.3); Mean Corpuscular Volume 76.8 fL (83.0-100.0); Mean Platelet Volume 10.8 fL (9.4-12.4); Monocytes # 0.8 K/mcL (0.0-1.3); Monocytes % 6.3 %; Platelet Count 170 K/mcL (140-400); Red Blood Count 3.41 M/mcL (3.82-4.97); Red Cell Distribution Width 17.3 % (11.5-14.5); Segmented Neutrophils % 72.5 %; White Blood Count 12.4 K/mcL (4.3-11.1)
[2019-07-10 05:16] LABS: Hemoglobin 7.8 g/dL (11.5-15.4)
[2019-07-10 07:59] VITALS: BP 97/50
[2019-07-10] MEDS: metroNIDAZOLE 500 MG TABLET PO SCH ×2 (08:12→15:21)
== END 2019-07-10 17:28 | disposition home or self-care (01) | DRG 540 ==
LOC: 1NENULAB 09:36 → 1NENUOBS 07-09 11:11
PROVIDERS: ADMIT Advanced Practice Midwife; ATTEND Advanced Practice Midwife